=== PATIENT | female | born 1990 | race Caucasian/White ===

== ENCOUNTER → 2019-04-13 | Outpatient (CLI) | payer OTHER | LOC: COL.RAD 12:04 | DX: G43.909 Migraine, unspecified, not intractable, without status migrainosus (principal); M54.9 Dorsalgia, unspecified; F31.81 Bipolar II disorder; I25.10 Atherosclerotic heart disease of native coronary artery without angina pectoris; F41.1 Generalized anxiety disorder; M54.2 Cervicalgia ==

== ENCOUNTER → 2019-04-21 | Outpatient (CLI) | payer OTHER | LOC: COL.RAD 13:36 | DX: M54.2 Cervicalgia (principal); M54.6 Pain in thoracic spine ==